=== PATIENT | male | born 1980 | race Caucasian/White ===

== ENCOUNTER → 2017-08-23 | Outpatient (CLI) | payer OTHER ==
[2017-08-27 01:26] LABS: RPR (VDRL) Non-reactive (())
[2017-08-27 12:14] LABS: HERPES SIMPLEX TYPE 1 Negative (Negative); HERPES SIMPLEX TYPE 2 Negative (Negative)
== END ==
LOC: LAB 17:23
PROVIDERS: Family Medicine
DX: S31.20XA Unspecified open wound of penis, initial encounter (principal)